=== PATIENT | female | born 1945 | race Caucasian/White ===

== ENCOUNTER 2021-01-16 08:29 | Emergency (ER) | payer MEDICARE, SELFPAY ==
[2021-01-16 08:58] VITALS: BP 150/104; PULSE 95; RESP 16; TEMP 36.4; O2SAT 97; BMI 38.2
--- NOTE | 2021-01-16 08:58 | XR_ITS ---
WS: [id number] Exam: XR KUB portable [id number] Date/Time of Exam: 01/16/2021 8:58 AM Reason For Exam: bad pain/constipation No bowel obstruction or free air. Mild ileus noted. Moderate amount retained stool in the colon. Tuba l ligation clips in the pelvis. Signs of prior cholecystectomy. XR/XR KUB portable [id number] IMPRESSION: 1. Mild ileus. 2. Constipation. No acute abdominal process noted at this time.
--- NOTE | 2021-01-16 08:58 | ED_ITS ---
HPI - Abdominal Pain General: Chief Complaint: Back Pain/Injury Stated Complaint: no BM x 1 week / back pain Time Seen by Provider: 01/16/21 08:40 History of Present Illness: HPI narrative: 75-year-old female presents emergency room with complaints of abdominal pain and back pain. She had a bowel movement 1 week. Patient states she was doing some lifting felt a popping sensation low in her back and since then has not been able to have a bowel movement. She still has full function of her lower extremities no numbness tingling or radiating pain. She is not had any problems with urinary retention. She has no known history of osteoporosis as previously had any back surgery he has not had any vomiting since hematochezia melena hematemesis cough emesis no hematuria no dysuria urgency or frequency. She does take calcium supplement denies any history of osteoporosis. MD elicited complaint: abdominal pain Pertinent past history: constipation Onset (ago): week(s) Pain Consistency: constant Location: Other (Mid to lower lumbar spine) Severity: mild Quality: cramping Radiation: none Exacerbating factors: nothing Relieving factors: nothing Associated Symptoms: Denies anorexia, belching, bloating, change in bowel habits, change in stool character, chills, coffee ground emesis, constipation, GI cramping, diarrhea, dyspepsia, dysuria, excessive flatus, fever(s), heartburn, hematochezia, hematuria, hematemesis, fecal incontinence, loose stools, melena, nausea, poor appetite, syncope and vomiting Review of Systems Const: Denies: fever(s) or chills ENMT: Denies: throat pain, ear or mastoid pain, nasal discharge or nasal congestion Card: Denies: syncope Resp: Denies: dyspnea, productive cough or non-productive cough GI: Denies: nausea, vomiting, hematemesis, coffee ground emesis, heartburn, diarrhea, constipation, bloating, GI cramping, belching, excessive flatus, fecal incontinence, change in bowel habits, change in stool character, hematochezia or melena : Denies: dysuria or hematuria Skin/Breast: Denies: rash or pruritus PFSH ED PFSH: Family History Father CAD (coronary artery disease) Social History Smoking and tobacco status: never smoked Alcohol intake: never Physical Exam Const: COMMON NORMALS: no acute distress GENERAL APPEARANCE: cooperative and comfortable ORIENTATION/CONSCIOUSNESS: Yes awake, Yes oriented to person, Yes oriented to place and Yes oriented to time HENMT: COMMON NORMALS: normocephalic, atraumatic and hearing grossly normal bilaterally HEAD & SCALP: normocephalic and atraumatic Neck/C-Spine: COMMON NORMALS: no JVD Resp: COMMON NORMALS: normal respiratory effort, No retractions, No use of accessory muscles and clear to auscultation bilaterally AUSCULTATION: clear to auscultation bilaterally Cardio: COMMON NORMALS: no JVD, regular rate, regular rhythm and No murmurs present (Cardio) RATE: regular rate RHYTHM: regular rhythm GI: COMMON NORMALS: Soft to palpation and No hepatosplenomegaly present AUSCULTATION: Yes normoactive bowel sounds PALPATION: Yes Soft to palpation, No Tenderness to palpation present (GI), No Guarding due to palpation present (GI) and Yes No hepatosplenomegaly present Extremity: COMMON NORMALS: normal to inspection, capillary refill normal, no clubbing, cyanosis or edema, no calf tenderness and no pedal edema Neuro: SENSORIUM/ORIENTATION: Yes oriented to person, Yes oriented to place and Yes oriented to time Skin: COMMON NORMALS: no rashes or lesions noted GENERAL SKIN EXAM: no rashes or lesions noted Course Vital Signs: Vital signs: Vital Signs Temperature 97.5 F L 01/16/21 08:58 Pulse Rate 91 01/16/21 11:18 Respiratory Rate 18 01/16/21 11:18 Blood Pressure 149/94 01/16/21 11:18 Pulse Oximetry 97 01/16/21 11:18 MDM - Abdominal Pain MDM Narrative: Medical decision making narrative: New T12 compression fracture. Was set up for an MRI referral for orthopedics for possible kyphoplasty. Patient has had problems narcotics in the past we will give her tramadol along with Zofran to use as needed. Avoid heavy lifting. Lab Data: Labs: Lab Results 01/16/21 01/16/21 01/16/21 Range/Units 10:00 10:00 10:17 WBC 12.1 H (4.0-10.0) 10^3/ uL RBC 5.53 H (4.1-5.3) 10^6/u L Hgb 16.5 H (11.5-15.3) g/dL Hct 50.8 H (37.0-47.0) % MCV 91.9 (81-99) fL MCH 29.8 (28.0-34.0) pg MCHC 32.5 (30.0-36.0) g/dL RDW 13.8 (12.1-15.1) % Plt Count 261 (130-400) 10^3/c mm MPV 11.4 H (7.4-10.4) fL Neut % (Auto) 73.6 % Lymph % (Auto) 17.6 % [place] % (Auto) 5.9 % Eos % (Auto) 1.7 % Baso % (Auto) 0.7 % Neut # (Auto) 8.91 H (1.8-7.7) 10^3/u L Lymph # (Auto) 2.1 (0.8-4.8) 10^3/u L [place] # (Auto) 0.7 (0.2-0.9) 10^3/u L Eos # (Auto) 0.2 (0.0-0.8) 10^3/u L Baso # (Auto) 0.1 (0.0-0.1) 10^3/u L Nucleated RBC % (a uto) 0 % Nucleated RBCs # 0.0 /100WBC Sodium Cancelled Potassium Cancelled Chloride Cancelled Carbon Dioxide Cancelled Anion Gap Cancelled BUN Cancelled Creatinine Cancelled GFR Calculation Cancelled Glucose Cancelled Calculated Osmolal ity Cancelled Calcium Cancelled Total Bilirubin Cancelled AST Cancelled ALT Cancelled Alkaline Phosphata se Cancelled Total Protein Cancelled Albumin Cancelled Globulin Cancelled Urine Color Yellow (Yellow) Urine Appearance Clear (CLEAR) Urine pH 5 (5-7) Ur Specific Gravit y 1.010 (1.005-1.030) Urine Protein Neg (Negative) Urine Glucose (UA) Norm (Normal) Urine Ketones Negative (Negative) Urine Blood Neg (Negative) Urine Nitrate Negative (Negative) Urine Bilirubin Neg (Negative) Urine Urobilinogen Norm (Negative) mg/dL Ur Leukocyte Debi ase Negative (Negative) Discharge Plan Discharge Patient Disposition: Home Clinical Impression: Vertebral compression fracture Condition: Stable Prescriptions: New Zofran 4 mg tablet 4 mg PO Q6H PRN (Reason: nausea and vomiting) Qty: 20 RF: 0 tramadol 50 mg tablet 50 mg PO QID PRN (Reason: pain) Qty: 30 RF: 0 No Action ascorbic acid (vitamin C) 500 mg capsule PO RF: 0 zinc 50 mg tablet 50 mg PO DAILY RF: 0 magnesium 200 mg tablet 200 mg PO DAILY RF: 0 cholecalciferol (vitamin D3) 125 mcg (5,000 unit) capsule 125 mcg PO DAILY RF: 0 calcium carbonate [Calcium 500] 500 mg calcium (1,250 mg) tablet 500 mg PO DAILY RF: 0 omega-3 fatty acids [Fish Oil Concentrate] 1,000 mg capsule 1,000 mg PO DAILY RF: 0 diltiazem HCl 240 mg capsule,extended release 24hr 240 mg PO DAILY Qty: 90 RF: 3 aspirin 81 mg tablet,delayed release (DR/EC) 81 mg PO DAILY Qty: 90 RF: 0 cephalexin [Keflex] 500 mg capsule 500 mg PO QID Qty: 40 RF: 0 Discharge Orders: Discharge ED (Routine); Ordered 01/16/21 Ordered By: Isael Lemons Referrals: Matty Xie DO [Primary Care Provider] - Patient Instructions: Opioid Safety Activity Restrictions/Additional Instructions: Case management will call to make arrangements for MRI and referral to orthopedics to evaluate for possible kyphoplasty. Pain medications as prescribed return if pain is uncontrollable. For constipation use mag citrate 150 mL [id number] daily 6 to 8 hours until desired results achieved. Since it is likely you will need to take pain medications for the next next few weeks for the compression fracture would recommend that you start Iram-Colace 1 p.o. twice daily this can be bought [id number]. Coding Level of Care Code ED Branch Or Department Chief Librarian for Jamie Fwd Exam Comprehensive
--- NOTE | 2021-01-16 09:03 | XR_ITS ---
WS: [id number] Exam: XR lumbar spine 2-3V* [id number] Date/Time of Exam: 01/16/2021 9:03 AM Reason For Exam: pain Mild compression deformity of the cephalad end plate of the T12. Age indeterminate. There are no frac tures of the lumbar spine. The disc spaces are preserved. Marked osteopenia. Facet arthropathy at all levels. Moderate dextroscoliosis. DJD of the SI joints. Recommendations: A detailed radiographic study of the T-spine could be helpful for further workup. XR/XR lumbar spine 2-3V* [id number] IMPRESSION: 1. Mild compression deformity of the upper plate of the T12 without obvious pos terior displacement. Fracture age is indeterminate. About 20% loss of vertebral height. 2. No fracture of the lumbar spine. Degenerative changes, osteopenia and scolio sis.
[2021-01-16 09:08] VITALS: O2SAT 97
[2021-01-16 10:04] LABS: Basophils # 0.1 10^3/uL (0.0-0.1); Basophils % 0.7 %; Eosinophils # 0.2 10^3/uL (0.0-0.8); Eosinophils % 1.7 %; Hematocrit 50.8 % (37.0-47.0); Hemoglobin 16.5 g/dL (11.5-15.3); Lymphocytes # 2.1 10^3/uL (0.8-4.8); Lymphocytes % 17.6 %; Mean Corpuscular HGB Conc 32.5 g/dL (30.0-36.0); Mean Corpuscular Hemoglobin 29.8 pg (28.0-34.0); Mean Corpuscular Volume 91.9 fL (81-99); Mean Platelet Volume 11.4 fL (7.4-10.4); Monocytes # 0.7 10^3/uL (0.2-0.9); Monocytes % 5.9 %; Neutrophils # 8.91 10^3/uL (1.8-7.7); Neutrophils % 73.6 %; Nucleated Red Blood Cells % 0 %; Platelet Count 261 10^3/cmm (130-400); Red Blood Count 5.53 10^6/uL (4.1-5.3); Red Cell Distribution Width 13.8 % (12.1-15.1); White Blood Count 12.1 10^3/uL (4.0-10.0)
[2021-01-16 10:45] LABS: Add Urine Microscopic? NO; Charge for UA Resulting for Rev
[2021-01-16 10:51] LABS: Bilirubin Urine Neg (Negative); Blood Urine Neg (Negative); Glucose Urine UA Norm (Normal); Ketones Urine Negative (Negative); Leukocyte Esterase Urine Negative (Negative); Nitrate Urine Negative (Negative); Protein Urine Neg (Negative); Urine Appearance Clear (CLEAR); Urine Color Yellow (Yellow); Urobilinogen Urine Norm (Negative); pH Urine 5 (5-7)
[2021-01-16 11:18] VITALS: BP 149/94; PULSE 91; RESP 18; O2SAT 97
--- NOTE | 2021-01-17 12:09 | DCPLANNER ---
content development manager had message to schedule a follow up appointment for patient with ortho for kyphyplasty and an outpatient MRI. content development manager called the ortho clinic, spoke with Polly, gave clinic patients information. content development manager also had message to schedule an outpatient MRI for patient. content development manager faxed signed order to centralized scheduling, will call for appointment information.
--- NOTE | 2021-02-07 12:08 | DCPLANNER ---
Centralized scheduling called patient to schedule an outpatient MRI - patient does not want the MRI at this time, it was cancelled.
== END 2021-01-16 11:19 | disposition home or self-care (01) ==
PROVIDERS: Emergency Provider Family Medicine; PCP Family Medicine
DX: S22.080A Wedge compression fracture of T11-T12 vertebra, initial encounter for closed fracture (principal); X58.XXXA Exposure to other specified factors, initial encounter; Z79.2 Long term (current) use of antibiotics; M41.86 Other forms of scoliosis, lumbar region; M85.88 Other specified disorders of bone density and structure, other site
CPT/HCPCS: 72100; 74018; 81003; 85025; 99283

== ENCOUNTER 2022-10-02 15:15 | Emergency (ER) | payer MEDICARE, SELFPAY ==
[2022-10-02] VITALS (19 sets, daily range): BP systolic 126–216; BP diastolic 78–149; PULSE 72–105; RESP 16–22; TEMP 36.3; O2SAT 90–100; BMI 39.4
--- NOTE | 2022-10-02 15:17 | ED_ITS ---
HPI - Altered Mental Status General: Chief Complaint: Neuro Symptoms/Deficit Stated Complaint: AMS - HEADACHE Time Seen by Provider: 10/02/22 15:16 History of Present Illness: Ms. Villavicencio is a 77-year-old lady with remote history of TIA without residual symptoms presented to the emergency department for headache and mental status change. Symptom onset was acute just after noon today. She reports putting on lipstick when half of her vision, specifically the right side, went black. She subsequently developed a headache and feels like it is difficult to think. Also has had trouble with right arm. Density symptoms as moderate. Course has persisted. I guess due to where the patient lives it took a long time for EMS to get there and a long time for her to be transported. EMS report was negative stroke scale. Prior to this patient was at her baseline health. No other specific changes in health, exacerbating, or alleviating factors identified. Onset (ago): hour(s) Time: 12:00 Timing confirmed by: spouse Severity: moderate Consistency of symptoms: Constant Associated symptoms: Reports no associated symptoms Review of Systems General: Reports: 10 or more systems reviewed and unremarkable except in HPI and below PFSH ED PFSH: Medical History (Updated 10/14/22 @ 01:33 by Dusty Soliman MD) Atrial fib/flutter, transient Carotid stenosis Surgical History (Updated 10/14/22 @ 01:33 by Dusty Soliman MD) History of appendectomy History of cholecystectomy Family History Father CAD (coronary artery disease) Social History Smoking and tobacco status: never smoked Alcohol intake: never Physical Exam Neuro: OTHER: NIHSS 6 right-sided hemianopia more pronounced in the right upper quadrant, mildly dysarthric speech, ataxia in right upper extremity, subjective sensory change in the right upper extremity which is mild, mild drift without hitting bed right upper extremity Procedures Intubation Time out performed: Yes sedative: Etomidate Mg Given: 40 paralytic: Vecuronium Mg Given: 40 Laryngoscope: fiber optic video scope ET Tube Size: 8 ET Tube Uncuffed: No Tube Secured Depth (cm): 24 Tube Secured Location: lips Tube Placement Confirmation: visualized tube passing through cords, equal breath sounds bilaterally, no breath sounds over epigastrium and confirmation by capnometry Patient Tolerated Procedure: no complications Course Vital Signs: Vital signs: Vital Signs Temperature 97.4 F L 10/02/22 15:18 Pulse Rate 72 10/02/22 20:04 Respiratory Rate 16 10/02/22 20:04 Blood Pressure 126/78 10/02/22 20:04 Pulse Oximetry 100 10/02/22 20:04 Oxygen Delivery Me thod 10/02/22 16:30 Oxygen Flow Rate 2 10/02/22 16:30 Fraction of Inspir ed Oxygen 100 10/02/22 18:21 MDM - Altered Mental Status Medical Decision Making 77-year-old lady presenting with strokelike symptoms. Initially EMS reported just mental status change however on initial exam patient NIHSS is 6. Stroke activation called. EKG notable for atrial fibrillation, left axis deviation, narrow QRS, no STEMI. CT demonstrates no acute intracranial hemorrhage or mass. Neurology at bedside evaluated patient and agrees with stroke diagnosis likely evolving posterior circulation. Blood pressure controlled with metoprolol and patient no longer has contraindications for tPA. After discussion with patient and family tPA administered. Labs with mild hemoconcentration similar to prior, no clear metabolic abnormal ities to explain symptoms. Negative range 2-hour delta troponin. The patient initially actually had improvement in symptoms however upon being taken back to CT for vascular imaging she had precipitous decline with drooling, protecting airway, left gaze preference, significant decline in mental status. CT demonstrates area of significant hemorrhage not associated with likely ischemic stroke location. Patient intubated by Dr. Blankenship as I was working on emergently transferring patient. Patient discussed with neurology who accepted the patient as ED to ED transfer in [place]. I discussed with the patient's both before and after intubation, unfortunately prognosis is likely poor however he does wish to proceed with care. Patient received aminocaproic acid, nicardipine, cryoprecipitate. Patient transferred in critical condition with ischemic stroke complicated by post tPA intracranial hemorrhage with acute respiratory failure and mental status failure. Lab Data 10/02/22 16:02 10/02/22 16:[address] 10/02/22 16:25 IMPRESSION: 1. Interval development of large area of hyperdense hemorrhage on the right, involving a significant portion of the right basal ganglia, as well as a portion of the right superior temporal lobe and extending superiorly into the right parietal lobe region. There is also extension or involvement into the right lateral ventricle superiorly. There is adjacent and surrounding hypodense edema with mass effect on the right lateral ventricle superiorly and adjacent brain, with mild midline shift right to left. ADDENDUM: 10/02/221823 Report was confirmed by Dusty Dos Santos at 10/02/2022 6:22 PM [employer]ING [employer] and has no questions. Chest X-Ray 10/02/22 18:29 IMPRESSION: 1. Endotracheal catheter appears in good position as noted above. 2. Suggestion of left basilar atelectasis. Laboratory Results WBC 14.3 10^3/uL (4.0-10.0) H 10/02/22 16:02 RBC 5.58 10^6/uL (4.1-5.3) H 10/02/22 16:02 Hgb 16.7 g/dL (11.5-15.3) H 10/02/22 16:02 Hct 52.0 % (37.0-47.0) H 10/02/22 16:02 MCV 93.2 fl (81-99) 10/02/22 16:02 MCH 29.9 pg (28.0-34.0) 10/02/22 16:02 MCHC 32.1 g/dL (30.0-36.0) 10/02/22 16:02 RDW 13.6 % (12.1-15.1) 10/02/22 16:02 Plt Count 301 10^3/cmm (130-400) 10/02/22 16:02 MPV 10.9 fL (7.4-10.4) H 10/02/22 16:02 Neut % (Auto) 85.2 % 10/02/22 16:02 Lymph % (Auto) 10.7 % 10/02/22 16:02 [place] % (Auto) 2.9 % 10/02/22 16:02 Eos % (Auto) 0.2 % 10/02/22 16:02 Baso % (Auto) 0.6 % 10/02/22 16:02 Neut # (Auto) 12.16 10^3/uL (1.8-7.7) H 10/02/22 16:02 Lymph # (Auto) 1.5 10^3/uL (0.8-4.8) 10/02/22 16:02 [place] # (Auto) 0.4 10^3/uL (0.2-0.9) 10/02/22 16:02 Eos # (Auto) 0.0 10^3/uL (0.0-0.8) 10/02/22 16:02 Baso # (Auto) 0.1 10^3/uL (0.0-0.1) 10/02/22 16:02 Nucleated RBC % (auto) 0 % 10/02/22 16:02 Nucleated RBCs # 0.0 /100WBC 10/02/22 16:02 PT 13.20 SECONDS (12.1-14.9) 10/02/22 16:02 INR 0.98 (0.8-1.2) 10/02/22 16:02 APTT 27.6 SECONDS (23.9-36.7) 10/02/22 16:02 Sodium 134 mmol/L (136-145) L 10/02/22 16:02 Potassium 4.3 mmol/L (3.5-5.1) 10/02/22 16:02 Chloride 98 mmol/L (98-107) 10/02/22 16:02 Carbon Dioxide 25 mmol/L (22-29) 10/02/22 16:02 Anion Gap 15.3 (5-19) 10/02/22 16:02 BUN 18 mg/dL (8-23) 10/02/22 16:02 Creatinine 0.8 mg/dL (0.5-0.9) 10/02/22 16:02 GFR Calculation Not Reportable 10/02/22 16:02 Glucose 117 mg/dL (65-115) H 10/02/22 16:02 POC Glucose 138 mg/dL (70-110) H 10/02/22 16:58 Calculated Osmolality 281 mOsm/kg (285-295) L 10/02/22 16:02 Calcium 9.5 mg/dL (8.5-10.5) 10/02/22 16:02 Total Bilirubin 0.3 mg/dL (0.15-1.2) 10/02/22 16:02 AST 24 U/L (0-32) 10/02/22 16:02 ALT 21 U/L (0-33) 10/02/22 16:02 Alkaline Phosphatase 103 U/L (35-105) 10/02/22 16:02 Troponin T Baseline 9 ng/L (0-10) 10/02/22 16:02 Troponin T 120 Minute 6.43 ng/L (0-10) 10/02/22 18:20 Delta Troponin T -2.57 ABS# (0-10) L 10/02/22 18:20 Total Protein 7.8 g/dL (6.6-8.7) 10/02/22 16:02 Albumin 4.3 g/dL (3.5-5.2) 10/02/22 16:02 Globulin 3.5 g/dL (1.3-4.6) 10/02/22 16:02 Critical Care Time Critical Care Time: Critical Care Time: Yes Total Critical Care Time: 45 Attestation: Due to a high probability of clinically significant, possibly life threatening deterioration, the patient required my highest level of attention and preparedness to intervene emergently and I personally spent this critical care time directly and personally managing the patient. This critical care time included obtaining a history; examining the patient; pulse oximetry; ordering and review of laboratory and imaging studies; arranging urgent treatment with development of a management plan; evaluation of patient's response to treatment; frequent reassessment; and, discussions with other providers as applicable. It was exclusive of separately billable procedures. Primary system involved is neurovascular Discharge Plan Discharge Patient Disposition: Transfer to ED Clinical Impression: Acute ischemic cerebrovascular accident (CVA) involving posterior cerebral artery territory, Received intravenous tissue plasminogen activator (tPA) in emergency department, Intracranial hemorrhage, Acute respiratory failure, Acute alteration in mental status Condition: Critical Prescriptions: No Action ascorbic acid (vitamin C) 500 mg capsule 500 mg PO DAILY magnesium 200 mg tablet 200 mg PO DAILY cholecalciferol (vitamin D3) 125 mcg (5,000 unit) capsule 125 mcg PO DAILY aspirin 81 mg tablet,delayed release (DR/EC) 81 mg PO DAILY Qty: 90 0RF diltiazem HCl 240 mg capsule,extended release 24hr 240 mg PO BEDTIME zinc acetate 50 mg (zinc) Capsule 50 mg PO DAILY Fish Oil Concentrate 1,000 mg Capsule 1,000 mg PO DAILY calcium carbonate 500 mg calcium (1,250 mg) Tablet 500 mg PO DAILY Referrals: Henegar,Edward, DO [Primary Care Provider] - Coding Level of Care Code ED Counterintelligence Agent for Jamie Vasquez
--- NOTE | 2022-10-02 15:33 | CTR_ITS ---
PROCEDURE INFORMATION: Exam: CT Head Without Contrast Exam date and time: 10/02/2022 3:43 PM Age: 77 years old Clinical indication: Stroke-like symptoms; Generalized weakness; Additional info: Symptoms of acute stroke, sharp shooting pain behind left eye, bilateral upper extremity weakness TECHNIQUE: Imaging protocol: Computed tomography of the head without contrast. Radiation optimization: All CT scans at this facility use at least one of these dose optimization techniques: automated exposure control; mA and/or kV adjustment per patient size (includes targeted exams where dose is matched to clinical indication); or iterative reconstruction. Other protocol: This patient has received 0 known CTs and 0 known cardiac nuclear medicine studies in the 12 months prior to the current study. Other technique: STROKE PROTOCOL was implemented. COMPARISON: CT head wo con* [id number] 09/08/2016 2:32 PM RADIATION DOSE METRICS: Total DLP (mGy-cm): 1088.58 FINDINGS: Brain: Atrophic or involutional change for age noted along with [id number] periventricular leukomalacia or chronic small-vessel disease change, chronic with prior exam. No findings to indicate acute large vessel ischemic infarct change. No intracranial hemorrhage or hematoma is seen. No mass effect or shift of midline structures identified. Cerebral ventricles: Mild ventricular prominence with atrophic change, without significant ventriculomegaly. Paranasal sinuses: Visualized sinuses are unremarkable. No fluid levels. Mastoid air cells: Visualized mastoid air cells are well aerated. Bones/joints: Unremarkable. No acute fracture. Soft tissues: Unremarkable. CT/CT head thrombolytic [id number] IMPRESSION: 1. Atrophic or involutional change for age along with chronic small-vessel disease change in the periventricular region. 2. No acute intracranial abnormality or significant change with prior exam. ASSESSMENT: ASPECTS ([place] Stroke Program Early CT Score) 10.
--- NOTE | 2022-10-02 15:56 | PC.PHAR ---
otc medications entered were on previous entered med list-pt unable to verify medications-pts states he is unsure of all the otc medications the pt takes-[facility] states last filled diltiazem er 240mg daily filled 08/07/22 90d/s-[facility] states diltiazem is the only medication they fill for the pt and pts states that is the only rx medication the pt takes
[2022-10-02] MEDS: labetalol 5 mg/mL SDV 20mL 10 MG IVP ×2 (16:00→19:47)
[2022-10-02 16:10] LABS: Basophils # 0.1 10^3/uL (0.0-0.1); Basophils % 0.6 %; Eosinophils % 0.2 %; Hemoglobin 16.7 g/dL (11.5-15.3); Lymphocytes # 1.5 10^3/uL (0.8-4.8); Lymphocytes % 10.7 %; Mean Corpuscular HGB Conc 32.1 g/dL (30.0-36.0); Mean Corpuscular Hemoglobin 29.9 pg (28.0-34.0); Mean Corpuscular Volume 93.2 fl (81-99); Mean Platelet Volume 10.9 fL (7.4-10.4); Monocytes # 0.4 10^3/uL (0.2-0.9); Monocytes % 2.9 %; Neutrophils # 12.16 10^3/uL (1.8-7.7); Neutrophils % 85.2 %; Nucleated Red Blood Cells % 0 %; Platelet Count 301 10^3/cmm (130-400); Red Blood Count 5.58 10^6/uL (4.1-5.3); Red Cell Distribution Width 13.6 % (12.1-15.1); White Blood Count 14.3 10^3/uL (4.0-10.0)
[2022-10-02 16:25] LABS: INR 0.98 (0.8-1.2)
--- NOTE | 2022-10-02 16:25 | CTR_ITS ---
PROCEDURE INFORMATION: Exam: CT Head Without Contrast Exam date and time: 10/02/2022 5:35 PM Age: 77 years old Clinical indication: Alteration of consciousness and visual disturbance; Syncope and collapse; Additional info: Stroke, tpa given. CT head done at 1545 hrs, patient received tpa. Cta head and neck was being attempted but was aborted after bleed was identified by ordering physician. TECHNIQUE: Imaging protocol: Computed tomography of the head without contrast. Radiation optimization: All CT scans at this facility use at least one of these dose optimization techniques: automated exposure control; mA and/or kV adjustment per patient size (includes targeted exams where dose is matched to clinical indication); or iterative reconstruction. Other protocol: This patient has received [address] and 0 known cardiac nuclear medicine studies in the 12 months prior to the current study. COMPARISON: CT head thrombolytic [id number] 10/02/2022 3:43 PM RADIATION DOSE METRICS: Total DLP (mGy-cm): 601.27 FINDINGS: Brain: Compared with exam earlier same date, interval development of large area of hyperdense hemorrhage is seen in the mid to lateral right basal ganglia region, and involving a portion of the right superior temporal lobe, and extending superiorly within the right parietal lobe. This measures approximately 7 x 5 cm in greatest diameter on axial exam. There is associated surrounding edema with mass effect on the right lateral ventricle and mild midline shift right to left of 3-4 mm. There is adjacent blood in the right lateral ventricle superiorly. Cerebral ventricles: See Brain finding. Paranasal sinuses: Visualized sinuses are unremarkable. No fluid levels. Mastoid air cells: Visualized mastoid air cells are well aerated. Bones/joints: Unremarkable. No acute fracture. Soft tissues: Unremarkable. CT/CT head wo con* [id number] IMPRESSION: 1. Interval development of large area of hyperdense hemorrhage on the right, involving a significant portion of the right basal ganglia, as well as a portion of the right superior temporal lobe and extending superiorly into the right parietal lobe region. There is also extension or involvement into the right lateral ventricle superiorly. There is adjacent and surrounding hypodense edema with mass effect on the right lateral ventricle superiorly and adjacent brain, with mild midline shift right to left.
[2022-10-02 16:26] LABS: Partial Thromboplastin Time 27.6 SECONDS (23.9-36.7)
[2022-10-02 16:30] LABS: Troponin(5th) Baseline 9 ng/L (0-10)
[2022-10-02 16:33] LABS: Alanine Aminotransferase 21 U/L (0-33); Albumin Level 4.3 g/dL (3.5-5.2); Alkaline Phosphatase 103 U/L (35-105); Anion Gap 15.3 (5-19); Aspartate Amino Transferase 24 U/L (0-32); Blood Urea Nitrogen 18 mg/dL (8-23); Calcium 9.5 mg/dL (8.5-10.5); Carbon Dioxide 25 mmol/L (22-29); Chloride 98 mmol/L (98-107); Globulin 3.5 g/dL (1.3-4.6); Glucose 117 mg/dL (65-115); Osmolality Calculated 281 mOsm/kg (285-295); Potassium 4.3 mmol/L (3.5-5.1); Sodium 134 mmol/L (136-145); Total Bilirubin 0.3 mg/dL (0.15-1.2); Total Protein 7.8 g/dL (6.6-8.7)
--- NOTE | 2022-10-02 16:48 | PC.NURSE ---
Pt arrived via EMS via [facility], PT c/o stroke symptoms. Upon initial assessment pt had deficits with left side vision, R hand coordination, and delayed speech. Arrived 1528 Stroke Called: 1534 Given 10mg of Labetolol thrice (30mg total). Roderick Soliman Patterson, [place] at bedside. TPA: 90 dose (104.5 KG), 10ml waste, 9ml bolus, 81 drip. TPA Started: 1613- bolus, 1615- drip start: total 81ml @ 85.1 ml/hr (total time 1hr 11min).
[2022-10-02 17:00] LABS: Glucose Point of Care 138 mg/dL (70-110)
--- NOTE | 2022-10-02 17:02 | PM.SAN ---
Stroke Alert Activation ED Arrival Date: 10/02/22 ED Arrival Time: 15:16 ED Physican at Bedside: 15:16 Last Known Normal/at Baseline: 3-4 hours ago Other Last Known Well Infomation: A stroke alert was called at 1534. This patient came in with somewhat nonspecific symptoms of visual loss but when Dr. Soliman questioned her she described hemianopsia and he found that she could not see on the right side. There was a delay for EMS to get to her house and a delay in transport so she was 3 hours and 15 minutes from last known well when she arrived and it took some time for Dr. Soliman to establish that she had a deficit. He called a stroke alert at 1534 and sent her to the CAT scan. We agreed that she needed to have treatment of her severe hypertension but she did not have an IV established, was a difficult stick because of her size, and ultrasound guidance was needed to get an IV. It was at least 20 minutes trying to get IV access and then we started treating her blood pressure with labetalol. There was another 20-minute delay to get her blood pressure under control. I was at the bedside from the time she returned from CAT scan and I went over her images with Dr. Soliman. I performed a neurologic exam and establish that she had right homonymous hemianopsia and no other deficit. Stroke Alert Activated by: Dr. Soliman Stroke Alert Activation Date: 10/02/22 Stroke Alert Activation Time: 15:34 Stroke MD @ Bedside Time: 15:45 NIH Stroke Scale Time: 15:50 NIH stroke score NIHSS: Level Of Consciousness - 1a: 0 Level Of Consciousness Questions - 1b: Both Correct Level Of Consciousness Commands - 1c: Both Correct Best Gaze - 2: Normal Visual [place] - 3: Complete Hemianopia Facial Palsy - 4: Normal Motor Arm Right - 5: No Drift Motor Arm Left - 5: No Drift Motor Leg Right - 6: No Drift Motor Leg Left - 6: No Drift Limb Ataxia - 7: Absent Best Language - 9: No Aphasia Dysarthia - 10: Mild/Moderate Dysarthia Extinction And Inattention - 11: 0 Stroke Alert Data/Treatment Time to CT of Head: 15:35 CT Impression: Unremarkable Stroke Risk Factors: hypertension and obesity tPA Started Date: 10/02/22 tPA Started Time: tPA Started - Time: 16:22 tPA Admin Prior to Arrival: No Patient & Family Educated on: Cause of Stroke, Treament Plan, Stroke Education Booklet and tPA Risks/Benefits Standardized Stroke Orders Used: Yes Critical Care Time Critical Care Time: 30 - 74 mins Additional information about critical care time: 45 min A&P Assessment and plan (1) Embolic stroke involving posterior cerebral artery: This patient presents with right homonymous hemianopsia, mild dysarthria and a little bit of confusion. These findings are consistent with a left posterior cerebral artery stroke. I explained the diagnosis to the patient and her and went over images from the stroke booklet. I recommended tPA and they were in agreement. Patient's blood pressure was markedly elevated and we had difficulty obtaining IV access. There was a long delay imposed by these 2 problems. Coding Level of Care Code Acute Code for Jamie Vasquez Diagnoses Embolic stroke involving posterior cerebral artery I63.439
--- NOTE | 2022-10-02 17:33 | ECG_ITS ---
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 Measurements Intervals [place] Rate: 95 P: 0 VA: 0 QRS: -4 QRSD: 92 T: 53 QT: 378 QTc: 475 Interpretive Statements ATRIAL FIBRILLATION LOW QRS VOLTAGE IN PRECORDIAL LEADS [QRS DEFLECTION < 1.0 mV IN CHEST LEADS] POSSIBLE ANTERIOR MYOCARDIAL INFARCTION , PROBABLY OLD [30 ms Q WAVE IN V3/V4, OR R < 0.2 mV IN V4] ABNORMAL RHYTHM ECG Compared to ECG 01/10/2017 13:20:57 Low QRS voltage now present Myocardial infarct finding now present Sinus rhythm no longer present T-wave abnormality no longer present Electronically Signed On 10-03-2022 8:12:57 PERIANESTHESIA NURSE by Francesca Correa M.D. [id number]
[2022-10-02] MEDS: nicardipine 20 MG/200 ML PREMIX 50 MG IV ×3 (17:56→19:49)
--- NOTE | 2022-10-02 18:29 | XRR_ITS ---
PROCEDURE INFORMATION: Exam: XR Chest Exam date and time: 10/02/2022 6:38 PM Age: 77 years old Clinical indication: Device placement; Other: Intubation TECHNIQUE: Imaging protocol: Radiologic exam of the chest. Views: 1 view. COMPARISON: CR XR chest 1V [id number] 09/08/2016 1:35 PM FINDINGS: Tubes, catheters and devices: Endotracheal catheter appears in good position with tip just below the level of the heads of the clavicle and approximately 4 cm above the level of the libby. Overlying paddles with leads noted. Lungs: Suggestion of left basilar atelectasis. No consolidation. Pleural spaces: Unremarkable. No pleural effusion. No pneumothorax. Heart/Mediastinum: Upper limits of normal cardiac size. Vasculature: Arteriosclerosis of the thoracic aorta. Bones/joints: Unremarkable. XR/XR chest 1V portable [id number] IMPRESSION: 1. Endotracheal catheter appears in good position as noted above. 2. Suggestion of left basilar atelectasis.
[2022-10-02 19:20] LABS: Troponin 5 2HR 6.43 ng/L (0-10)
[2022-10-02 19:23] LABS: Troponin 5 2HR Delta -2.57 ABS# (0-10)
--- NOTE | 2022-10-02 19:45 | PC.NURSE ---
Pt was in resp distress, she was foaming at the mouth and had smoring respirations, i yelled out we need a doctor, i put in a nasal airway and suctioned the pt. Dr. Soliman came in the room later and said we need to intubate. He gave a verbal order of 100 of etomidate and left the room, i noticed that the order was not the right dosage but he was gone. I went to his office to get a verbal order and he was on the phone so i got Dr. Blankenship to come in and give the orders for the pt.
[2022-10-02] MEDS: acetaminophen 1,000 MG/100 ML PIGGYBACK 400 MG IV (19:49)
[2022-10-02] MEDS: propofol 1,000 MG/100 ML INJ 6.26 MG IV (19:50)
--- NOTE | 2022-10-02 19:51 | PC.NURSE ---
Pt given TPA, during CTA post administration a bleed in the L side of patient's brain was discovered. Pt started to have L side fixed gaze, foaming at the mouth. Pt was rushed into room 10, aiway was suctioned, pads applied, IV access obtained, pt was intubated by Dr. Blankenship (20 of Atomodate/10 of Vect 8.0 25 @ L lip). Pt on vent 450, 6 peep, rate 16. Pt was hypertensive (177/143), given 10mg labatelol, propofal, cardine and BP stabilized 126/65. Zamarripa placed. Pt packaged upon arrival with air evac.
--- NOTE | 2022-10-02 19:53 | PC.NURSE ---
1617 reported to primary nurse of pt declining condition. Pt snoring respirations, responsive to sternal rub, and diaphoretic.
--- NOTE | 2022-10-02 19:55 | PC.NURSE ---
1629 Physician notified of pt condition and of CT results. No new orders received.
--- NOTE | 2022-10-02 20:00 | PC.NURSE ---
Addendum entered by Iftikhar Villagomez RN 10/06/22 13:44: Correction, new orders were placed to accommodate patients lethargic state for headache treatment by canceling fentanyl and ordering IV Tylenol. Pt was shortly whisked away to CT for CTA just after orders placed. Original Note: Prior to pt decline, fellow nurse notified me of possibility of decline while in CT, physician notified at that time of pt lethargic state prior to CTA, and upon transport to CT. No new orders received. prior to pt official decline.
--- NOTE | 2022-10-02 20:50 | PC.NURSE ---
Addendum entered by Janessa Blakely RN 10/03/22 13:33: Events took place closer to 1740 Original Note: Around 1640 Food Porter, (radio news writer), and 2 RN assisted in transfer of pt from CT table to ER [facility] via request of MD in charge of care. Pt was found to have what sounded like snorous type respirations and not responsive to verbal requests, with noticable left sided weakness when approached in CT. This RN ran back to ED to make sure MD was aware of pt condition. Pt then transferred into new trauma room. Nasal airway placed. Pt intermitently suctioned by kennel staff member. Increasingly high BP was found. IO and 2nd IV placed as patient had pulled out other IV. MD notified of climbing BP as well as respiratory declining status. No orders received. Pt bed angle adjusted in efforts to decrease possible ICP. MD then came into room stating we needed to intubate. Care team had already prepped for intubation. New orders of 100 Etom given. Primary RN went to clarify orders. ER staff asked to hold off on those orders until otherwise verified by MD. Another ER Dr came into room to give verbal orders and to intubate pt.
--- NOTE | 2022-10-17 05:23 | ED_ITS ---
HPI - Neuro Symptoms/Deficit General: Chief Complaint: Neuro Symptoms/Deficit Stated Complaint: AMS - HEADACHE Time Seen by Provider: 10/02/22 15:16 History of Present Illness: . Severity: moderate PFSH ED PFSH: Medical History (Updated 10/14/22 @ 01:33 by Dusty Soliman MD) Atrial fib/flutter, transient Carotid stenosis Surgical History (Updated 10/14/22 @ 01:33 by Dusty Soliman MD) History of appendectomy History of cholecystectomy Family History Father CAD (coronary artery disease) Social History Smoking and tobacco status: never smoked Alcohol intake: never Procedures Intubation Time out performed: Yes sedative: Etomidate paralytic: Rocuronium Laryngoscope: fiber optic video scope ET Tube Size: 8 ET Tube Uncuffed: No Tube Secured Depth (cm): 25 Tube Secured Location: lips Tube Placement Confirmation: visualized tube passing through cords, equal breath sounds bilaterally, no breath sounds over epigastrium and confirmation by capnometry Patient Tolerated Procedure: well Intubation Complications: none Course Vital Signs: Vital signs: Vital Signs Temperature 97.4 F L 10/02/22 15:18 Pulse Rate 72 10/02/22 20:04 Respiratory Rate 16 10/02/22 20:04 Blood Pressure 126/78 10/02/22 20:04 Pulse Oximetry 100 10/02/22 20:04 Oxygen Delivery Me thod 10/02/22 16:30 Oxygen Flow Rate 2 10/02/22 16:30 Fraction of Inspir ed Oxygen 100 10/02/22 18:21 MDM - Neuro Symptoms/Deficit Medical Decision Making I was called into the room to assess the patient as patient's provider was unavailable at the time she had a massive hemorrhage and had a nasopharyngeal airway and was not protecting her airway and I did intubate her at that time wit h no difficulties. Lab Data 10/02/22 16:02 10/02/22 16:[address] 10/02/22 16:25 IMPRESSION: 1. Interval development of large area of hyperdense hemorrhage on the right, involving a significant portion of the right basal ganglia, as well as a portion of the right superior temporal lobe and extending superiorly into the right parietal lobe region. There is also extension or involvement into the right lateral ventricle superiorly. There is adjacent and surrounding hypodense edema with mass effect on the right lateral ventricle superiorly and adjacent brain, with mild midline shift right to left. ADDENDUM: 10/02/22 1824 Report was confirmed by Dusty Dos Santos at 10/02/2022 6:22 PM SLOPE RUNNER and has no questions. Chest X-Ray 10/02/22 18:29 IMPRESSION: 1. Endotracheal catheter appears in good position as noted above. 2. Suggestion of left basilar atelectasis. Laboratory Results WBC 14.3 10^3/uL (4.0-10.0) H 10/02/22 16:02 RBC 5.58 10^6/uL (4.1-5.3) H 10/02/22 16:02 Hgb 16.7 g/dL (11.5-15.3) H 10/02/22 16:02 Hct 52.0 % (37.0-47.0) H 10/02/22 16:02 MCV 93.2 fl (81-99) 10/02/22 16:02 MCH 29.9 pg (28.0-34.0) 10/02/22 16:02 MCHC 32.1 g/dL (30.0-36.0) 10/02/22 16:02 RDW 13.6 % (12.1-15.1) 10/02/22 16:02 Plt Count 301 10^3/cmm (130-400) 10/02/22 16:02 MPV 10.9 fL (7.4-10.4) H 10/02/22 16:02 Neut % (Auto) 85.2 % 10/02/22 16:02 Lymph % (Auto) 10.7 % 10/02/22 16:02 [place] % (Auto) 2.9 % 10/02/22 16:02 Eos % (Auto) 0.2 % 10/02/22 16:02 Baso % (Auto) 0.6 % 10/02/22 16:02 Neut # (Auto) 12.16 10^3/uL (1.8-7.7) H 10/02/22 16:02 Lymph # (Auto) 1.5 10^3/uL (0.8-4.8) 10/02/22 16:02 [place] # (Auto) 0.4 10^3/uL (0.2-0.9) 10/02/22 16:02 Eos # (Auto) 0.0 10^3/uL (0.0-0.8) 10/02/22 16:02 Baso # (Auto) 0.1 10^3/uL (0.0-0.1) 10/02/22 16:02 Nucleated RBC % (auto) 0 % 10/02/22 16:02 Nucleated RBCs # 0.0 /100WBC 10/02/22 16:02 PT 13.20 SECONDS (12.1-14.9) 10/02/22 16:02 INR 0.98 (0.8-1.2) 10/02/22 16:02 APTT 27.6 SECONDS (23.9-36.7) 10/02/22 16:02 Sodium 134 mmol/L (136-145) L 10/02/22 16:02 Potassium 4.3 mmol/L (3.5-5.1) 10/02/22 16:02 Chloride 98 mmol/L (98-107) 10/02/22 16:02 Carbon Dioxide 25 mmol/L (22-29) 10/02/22 16:02 Anion Gap 15.3 (5-19) 10/02/22 16:02 BUN 18 mg/dL (8-23) 10/02/22 16:02 Creatinine 0.8 mg/dL (0.5-0.9) 10/02/22 16:02 GFR Calculation Not Reportable 10/02/22 16:02 Glucose 117 mg/dL (65-115) H 10/02/22 16:02 POC Glucose 138 mg/dL (70-110) H 10/02/22 16:58 Calculated Osmolality 281 mOsm/kg (285-295) L 10/02/22 16:02 Calcium 9.5 mg/dL (8.5-10.5) 10/02/22 16:02 Total Bilirubin 0.3 mg/dL (0.15-1.2) 10/02/22 16:02 AST 24 U/L (0-32) 10/02/22 16:02 ALT 21 U/L (0-33) 10/02/22 16:02 Alkaline Phosphatase 103 U/L (35-105) 10/02/22 16:02 Troponin T Baseline 9 ng/L (0-10) 10/02/22 16:02 Troponin T 120 Minute 6.43 ng/L (0-10) 10/02/22 18:20 Delta Troponin T -2.57 ABS# (0-10) L 10/02/22 18:20 Total Protein 7.8 g/dL (6.6-8.7) 10/02/22 16:02 Albumin 4.3 g/dL (3.5-5.2) 10/02/22 16:02 Globulin 3.5 g/dL (1.3-4.6) 10/02/22 16:02 Discharge Plan Discharge Patient Disposition: Transfer to ED Clinical Impression: Acute ischemic cerebrovascular accident (CVA) involving posterior cerebral [place], Received intravenous tissue plasminogen activator (tPA) in emergency department, Intracranial hemorrhage, Acute respiratory failure, Acute alteration in mental status Condition: Critical Prescriptions: No Action ascorbic acid (vitamin C) 500 mg capsule 500 mg PO DAILY magnesium 200 mg tablet 200 mg PO DAILY cholecalciferol (vitamin D3) 125 mcg (5,000 unit) capsule 125 mcg PO DAILY aspirin 81 mg tablet,delayed release (DR/EC) 81 mg PO DAILY Qty: 90 0RF diltiazem HCl 240 mg capsule,extended release 24hr 240 mg PO BEDTIME zinc acetate 50 mg (zinc) Capsule 50 mg PO DAILY Fish Oil Concentrate 1,000 mg Capsule 1,000 mg PO DAILY calcium carbonate 500 mg calcium (1,250 mg) Tablet 500 mg PO DAILY Referrals: Matty Xie DO [Primary Care Provider] - Coding Level of Care Code ED 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
== END 2022-10-02 19:05 ==
PROVIDERS: Emergency Provider Emergency Medicine; PCP Family Medicine
DX: I63.9 Cerebral infarction, unspecified (principal); I62.9 Nontraumatic intracranial hemorrhage, unspecified; J96.00 Acute respiratory failure, unspecified whether with hypoxia or hypercapnia; R41.82 Altered mental status, unspecified; Z79.82 Long term (current) use of aspirin; Z86.73 Personal history of transient ischemic attack (TIA), and cerebral infarction without residual deficits
CPT/HCPCS: 31500; 36415; 36416; 51702; 70450; 71045; 80053; 82962; 84484; 85025; 85610; 85730; 86900; 86927; 93005; 94002; 94799; 96365; 96366; 96367; 96375; 96376; 99291; 99292; J0131; J2704; J2997; J3490; P9012